=== PATIENT | female | born 1940 | race Native Hawaiian/Other Pacific Islander ===

== ENCOUNTER 2018-05-25 08:02 | Outpatient (CLI) | payer OTHER ==
[~2018-05-25] VITALS: Ht 30.5 cm; Wt 0.0 kg
== END 2018-05-25 20:44 | disposition home or self-care (01) ==
LOC: NM 08:02
DX: R07.9 Chest pain, unspecified (principal); R00.1 Bradycardia, unspecified
CPT/HCPCS: 93306; A9500; J2785

== ENCOUNTER 2018-11-02 10:59 | Outpatient (CLI) | payer OTHER | END 2018-11-02 23:22 | disposition home or self-care (01) | LOC: RAD 10:59 | DX: M85.89 Other specified disorders of bone density and structure, multiple sites (principal) ==